=== PATIENT | female | born 1965 | race African-American/Black ===

== ENCOUNTER 2018-02-11 11:26 | Inpatient (IN) | payer OTHER, MEDICAID ==
[~2018-02-11] VITALS: Ht 152.4 cm; Wt 81.6 kg
[2018-02-11] MEDS ORDERED: SODIUM CHLORIDE 0.9% 1,000 ML IV ONE ×2 (11:35→14:46)
[2018-02-11] MEDS ORDERED: INSULIN (11:36)
[2018-02-11 13:22] LABS: BASOPHILS % 0.4 % (0.0-2.0); EOSINOPHILS % 1.8 % (0.0-5.0); HEMOGLOBIN. 12.7 g/dL (12.0-16.0); LYMPHOCYTES % 30.3 % (20.0-50.0); MEAN CORPUSCULAR HEMOGLOBIN 29.8 pg (28.0-32.0); MEAN CORPUSCULAR VOLUME 86.6 fL (81.0-99.0); MONOCYTES % 13.5 % (2.0-8.0); PLATELET 236 x1000/uL (130-400); RED BLOOD CELL COUNT 4.27 mill/uL (4.2-5.4)
[2018-02-11 13:24] LABS: CHLORIDE 106 mEq/L (98-107)
[2018-02-11 14:07] LABS: INR 1.1; PROTHROMBIN TIME 10.8 sec (9.1-11.1)
[2018-02-11] MEDS ORDERED: CLONIDINE 0.1MG TABLET PO PRN (16:00)
[2018-02-11] MEDS ORDERED: DOCUSATE SODIUM 100MG CAPSULE PO PRN (16:00)
[2018-02-11] MEDS ORDERED: ACETAMINOPHEN 650MG SUPP PR PRN (16:00)
[2018-02-11] MEDS ORDERED: MAGNESIUM/ALUMINUM HYDROXIDE/SIMETHICONE 30ML UDC PO PRN (16:00)
[2018-02-11] MEDS ORDERED: HYDROCODONE/ACETAMINOPHEN 10/325MG TABLET PO PRN (16:00)
[2018-02-11] MEDS ORDERED: DIPHENHYDRAMINE 50MG/ML VIAL IV PRN (16:00)
[2018-02-11] MEDS ORDERED: DEXTROSE 50% WATER 50ML SYRINGE IV PRN (16:00)
[2018-02-11] MEDS ORDERED: IPRATROPIUM/ALBUTEROL 0.5-3(2.5)MG/3ML NEB INH PRN (16:00)
[2018-02-11] MEDS ORDERED: ONDANSETRON HCL 4MG/2ML INJ IV PRN (16:00)
[2018-02-11] MEDS ORDERED: GUAIFENESIN 200MG/10ML SUGAR FREE UDC PO PRN (16:00)
[2018-02-11] MEDS ORDERED: NA PHOS,M-B/NA PHOS,DI-BA ENEMA 118ML PR PRN (16:00)
[2018-02-11] MEDS ORDERED: ACETAMINOPHEN 325MG TABLET PO PRN (16:00)
[2018-02-11] MEDS: HYDROMORPHONE HCL/PF 2MG/ML CPJ IV PRN ×2 (16:41→23:40)
[2018-02-11] MEDS ORDERED: GUAIFENESIN-DM 200MG-20MG/10ML UDC PO PRN (17:00)
[2018-02-11 17:30] LABS: CLARITY URINE CLOUDY (CLEAR); COLOR URINE DARK YELLOW (YELLOW); KETONES URINE TRACE (NEGATIVE); LEUKOCYTE ESTERASE URINE NEGATIVE (NEGATIVE); NITRITE URINE NEGATIVE (NEGATIVE); OCCULT BLOOD URINE NEGATIVE (NEGATIVE); PROTEIN URINE NEGATIVE (NEGATIVE); SPECIFIC GRAVITY URINE 1.025 (1.005-1.030)
[2018-02-11] MEDS ORDERED: IPRATROPIUM/ALBUTEROL 0.5-3(2.5)MG/3ML NEB HHN SCH (18:00)
[2018-02-11 23:14] LABS: CREATINE KINASE 33 IU/L (26-192)
[2018-02-11 23:15] LABS: CREATINE KINASE MB FRACTION < 1.0 ng/mL (0.5-3.6)
[2018-02-12] MEDS ORDERED: SODIUM CHLORIDE 0.9% 1,000 ML IV SCH (03:00)
[2018-02-12 03:36] VITALS: BP 95/54
[2018-02-12 04:00] VITALS: BP 106/53
[2018-02-12] MEDS: METRONIDAZOLE 500 MG PREMIX 100 ML IV SCH ×2 (04:33→12:19)
[2018-02-12] MEDS: LEVOFLOXACIN 500MG PREMIX 100 ML IV SCH (05:27)
[2018-02-12] MEDS: SODIUM CHLORIDE 0.9% INJ 3ML FLUSH IVF SCH ×3 (05:28→23:11)
[2018-02-12] MEDS: BLOOD SUGAR DIAGNOSTIC STRIP TEST SCH ×4 (06:19→20:04)
[2018-02-12] MEDS: INSULIN LISPRO 100 UNITS/ML SUBCUT SCH ×4 (06:20→20:04)
[2018-02-12] MEDS: HYDROMORPHONE HCL/PF 2MG/ML CPJ IV PRN ×2 (07:41→19:58)
[2018-02-12 08:00] VITALS: BP 114/84
[2018-02-12] MEDS ORDERED: HYDROMORPHONE HCL/PF 2MG/ML CPJ IV PRN (10:00)
[2018-02-12 12:00] VITALS: BP 112/74
[2018-02-12] MEDS: DEXT 5%/0.45% NACL 1000ML 1,000 ML IV SCH ×2 (12:19→23:12)
[2018-02-12 16:00] VITALS: BP 139/75
[2018-02-12 20:00] VITALS: BP 155/97
[2018-02-12] MEDS: LORAZEPAM 2MG/ML CPJ IV PRN (20:47)
[2018-02-12] MEDS ORDERED: ZOLPIDEM TARTRATE 5MG TABLET PO PRN (21:00)
[2018-02-12] MEDS: IPRATROPIUM/ALBUTEROL 0.5-3(2.5)MG/3ML NEB HHN SCH (21:36)
[2018-02-13] VITALS (9 sets, daily range): BP systolic 88–155; BP diastolic 39–91
[2018-02-13] MEDS: METRONIDAZOLE 500 MG PREMIX 100 ML IV SCH ×4 (00:39→21:36)
[2018-02-13] MEDS: HYDROMORPHONE HCL/PF 2MG/ML CPJ IV PRN ×7 (00:50→20:13)
[2018-02-13] MEDS: IPRATROPIUM/ALBUTEROL 0.5-3(2.5)MG/3ML NEB HHN SCH ×4 (01:54→20:29)
[2018-02-13] MEDS: ACETYLCYSTEINE 100MG/ML 10% VIAL 4ML INH SCH ×3 (01:54→16:50)
[2018-02-13] MEDS: LEVOFLOXACIN 500MG PREMIX 100 ML IV SCH (05:07)
[2018-02-13] MEDS: SODIUM CHLORIDE 0.9% INJ 3ML FLUSH IVF SCH ×3 (06:18→23:55)
[2018-02-13] MEDS: BLOOD SUGAR DIAGNOSTIC STRIP TEST SCH ×4 (06:18→21:34)
[2018-02-13] MEDS: INSULIN LISPRO 100 UNITS/ML SUBCUT SCH ×4 (06:24→21:00)
[2018-02-13 08:15] LABS: HEMATOCRIT. 33.5 % (36.0-48.0); HEMOGLOBIN. 11.3 g/dL (12.0-16.0); MEAN CORPUSCULAR VOLUME 86.1 fL (81.0-99.0); MEAN PLATELET VOLUME 6.8 fl (7.4-10.4); PLATELET 205 x1000/uL (130-400); RED BLOOD CELL COUNT 3.89 mill/uL (4.2-5.4); RED CELL DISTRIBUTION WIDTH 15.9 % (11.6-14.6)
[2018-02-13 09:02] LABS: CHLORIDE 106 mEq/L (98-107)
[2018-02-13 09:26] LABS: CREATINE KINASE 39 IU/L (26-192)
[2018-02-13 09:27] LABS: T4 FREE 0.83 ng/dL (0.76-1.46)
[2018-02-13 09:29] LABS: CREATINE KINASE MB FRACTION < 1.0 ng/mL (0.5-3.6)
[2018-02-13 10:48] LABS: PLATELET ESTIMATE NORMAL
[2018-02-13] MEDS: LORAZEPAM 2MG/ML CPJ IV PRN (11:04)
[2018-02-13] MEDS ORDERED: PHYTONADIONE 10MG/ML AMP SUBCUT NR (12:15)
[2018-02-13] MEDS: DEXT 5%/0.45% NACL 1000ML 1,000 ML IV SCH (13:13)
[2018-02-14] VITALS: BP 100/58
[2018-02-14] MEDS: IPRATROPIUM/ALBUTEROL 0.5-3(2.5)MG/3ML NEB HHN SCH ×4 (00:38→19:50)
[2018-02-14] MEDS: ACETYLCYSTEINE 100MG/ML 10% VIAL 4ML INH SCH (00:38)
[2018-02-14] MEDS: HYDROMORPHONE HCL/PF 2MG/ML CPJ IV PRN ×6 (01:17→20:16)
[2018-02-14] MEDS: DEXT 5%/0.45% NACL 1000ML 1,000 ML IV SCH ×2 (01:17→11:26)
[2018-02-14 04:00] VITALS: BP 97/55
[2018-02-14] MEDS: METRONIDAZOLE 500 MG PREMIX 100 ML IV SCH ×2 (05:05→13:16)
[2018-02-14] MEDS: SODIUM CHLORIDE 0.9% INJ 3ML FLUSH IVF SCH ×3 (05:07→22:48)
[2018-02-14] MEDS: LEVOFLOXACIN 500MG PREMIX 100 ML IV SCH (06:21)
[2018-02-14] MEDS: BLOOD SUGAR DIAGNOSTIC STRIP TEST SCH ×4 (06:25→20:28)
[2018-02-14] MEDS: INSULIN LISPRO 100 UNITS/ML SUBCUT SCH ×4 (07:28→20:28)
[2018-02-14 08:00] VITALS: BP 132/72
[2018-02-14 12:00] VITALS: BP 90/50
[2018-02-14] MEDS: LORAZEPAM 2MG/ML CPJ IV PRN (14:46)
[2018-02-14 16:00] VITALS: BP 132/83
[2018-02-14] MEDS: PIPERACILLIN/TAZ 3.375G PREMIX 50 ML IV SCH ×2 (17:02→23:45)
[2018-02-14 20:00] VITALS: BP 116/52
[2018-02-14] MEDS ORDERED: LABETALOL HCL 100MG TABLET PO SCH (21:00)
[2018-02-15] VITALS: BP 118/56
[2018-02-15] MEDS: HYDROMORPHONE HCL/PF 2MG/ML CPJ IV PRN ×6 (00:10→23:09)
[2018-02-15] MEDS: IPRATROPIUM/ALBUTEROL 0.5-3(2.5)MG/3ML NEB HHN SCH ×4 (00:55→20:35)
[2018-02-15] MEDS: ACETYLCYSTEINE 100MG/ML 10% VIAL 4ML INH SCH ×3 (00:55→15:32)
[2018-02-15] MEDS: DEXT 5%/0.45% NACL 1000ML 1,000 ML IV SCH (03:53)
[2018-02-15 04:00] VITALS: BP 101/43
[2018-02-15] MEDS: SODIUM CHLORIDE 0.9% INJ 3ML FLUSH IVF SCH ×3 (05:51→21:10)
[2018-02-15] MEDS: LEVOFLOXACIN 500MG PREMIX 100 ML IV SCH (05:51)
[2018-02-15] MEDS: PIPERACILLIN/TAZ 3.375G PREMIX 50 ML IV SCH ×4 (05:51→23:09)
[2018-02-15] MEDS: BLOOD SUGAR DIAGNOSTIC STRIP TEST SCH ×4 (06:02→20:49)
[2018-02-15] MEDS: INSULIN LISPRO 100 UNITS/ML SUBCUT SCH ×4 (06:02→20:49)
[2018-02-15 08:00] VITALS: BP 99/45
[2018-02-15 13:18] LABS: HEMATOCRIT 33.1 % (36.0-48.0); HEMOGLOBIN 11.2 g/dL (12.0-16.0); MEAN CORPUSCULAR HEMOGLOBIN 29.6 pg (28.0-32.0); MEAN CORPUSCULAR VOLUME 87.3 fL (81.0-99.0); PLATELET 215 x1000/uL (130-400); RED BLOOD CELL COUNT 3.79 mill/uL (4.2-5.4); RED CELL DISTRIBUTION WIDTH 15.7 % (11.6-14.6)
[2018-02-15 14:00] LABS: CHLORIDE 100 mEq/L (98-107)
[2018-02-15 14:35] VITALS: BP 141/94
[2018-02-15 16:00] VITALS: BP 98/51
[2018-02-15] MEDS: AMLODIPINE 5MG TABLET PO SCH (17:15)
[2018-02-15 20:00] VITALS: BP 153/88
[2018-02-16] VITALS (7 sets, daily range): BP systolic 91–131; BP diastolic 51–83
[2018-02-16] MEDS: IPRATROPIUM/ALBUTEROL 0.5-3(2.5)MG/3ML NEB HHN SCH ×4 (01:23→14:50)
[2018-02-16] MEDS: HYDROMORPHONE HCL/PF 2MG/ML CPJ IV PRN ×6 (02:06→20:11)
[2018-02-16] MEDS: SODIUM CHLORIDE 0.9% INJ 3ML FLUSH IVF SCH ×2 (05:16→14:00)
[2018-02-16] MEDS: PIPERACILLIN/TAZ 3.375G PREMIX 50 ML IV SCH ×3 (05:16→18:56)
[2018-02-16 08:05] LABS: HEMATOCRIT 32.6 % (36.0-48.0); HEMOGLOBIN 11.2 g/dL (12.0-16.0); MEAN CORPUSCULAR HEMOGLOBIN 29.7 pg (28.0-32.0); MEAN CORPUSCULAR VOLUME 86.3 fL (81.0-99.0); PLATELET 221 x1000/uL (130-400); RED BLOOD CELL COUNT 3.78 mill/uL (4.2-5.4); RED CELL DISTRIBUTION WIDTH 15.7 % (11.6-14.6)
[2018-02-16] MEDS: AMLODIPINE 5MG TABLET PO SCH (08:30)
[2018-02-16 08:56] LABS: CHLORIDE 102 mEq/L (98-107)
[2018-02-16] MEDS: BLOOD SUGAR DIAGNOSTIC STRIP TEST SCH ×3 (12:00→20:27)
[2018-02-16] MEDS: INSULIN LISPRO 100 UNITS/ML SUBCUT SCH ×3 (12:07→20:27)
[2018-02-16] MEDS: ACETYLCYSTEINE 100MG/ML 10% VIAL 4ML INH SCH (16:50)
[2018-02-17] VITALS: BP 126/88
[2018-02-17] MEDS: SODIUM CHLORIDE 0.9% INJ 3ML FLUSH IVF SCH ×4 (00:02→21:22)
[2018-02-17] MEDS: HYDROMORPHONE HCL/PF 2MG/ML CPJ IV PRN ×7 (00:03→21:22)
[2018-02-17] MEDS: PIPERACILLIN/TAZ 3.375G PREMIX 50 ML IV SCH ×4 (00:10→17:16)
[2018-02-17 04:00] VITALS: BP 133/80
[2018-02-17] MEDS: INSULIN LISPRO 100 UNITS/ML SUBCUT SCH ×4 (06:33→20:48)
[2018-02-17] MEDS: BLOOD SUGAR DIAGNOSTIC STRIP TEST SCH ×4 (06:33→21:00)
[2018-02-17 08:00] VITALS: BP 101/69
[2018-02-17] MEDS: AMLODIPINE 5MG TABLET PO SCH (08:28)
[2018-02-17] MEDS: ACETYLCYSTEINE 100MG/ML 10% VIAL 4ML INH SCH ×2 (08:50→16:37)
[2018-02-17] MEDS: IPRATROPIUM/ALBUTEROL 0.5-3(2.5)MG/3ML NEB HHN SCH ×3 (08:50→20:41)
[2018-02-17 11:20] VITALS: BP 123/78
[2018-02-17 16:07] VITALS: BP 110/69
[2018-02-17 20:00] VITALS: BP 113/74
[2018-02-18] VITALS: BP 126/68
[2018-02-18] MEDS: PIPERACILLIN/TAZ 3.375G PREMIX 50 ML IV SCH ×3 (00:38→12:46)
[2018-02-18] MEDS: HYDROMORPHONE HCL/PF 2MG/ML CPJ IV PRN ×5 (00:38→14:04)
[2018-02-18 04:00] VITALS: BP 115/74
[2018-02-18] MEDS: SODIUM CHLORIDE 0.9% INJ 3ML FLUSH IVF SCH ×2 (05:34→14:05)
[2018-02-18] MEDS: BLOOD SUGAR DIAGNOSTIC STRIP TEST SCH ×2 (07:10→12:10)
[2018-02-18] MEDS: INSULIN LISPRO 100 UNITS/ML SUBCUT SCH ×2 (07:40→12:40)
[2018-02-18] MEDS: AMLODIPINE 5MG TABLET PO SCH (09:23)
[2018-02-18 12:00] VITALS: BP 106/63
[2018-02-18 15:39] VITALS: BP 106/63
[2018-02-18 16:07] VITALS: BP 102/42
== END 2018-02-18 16:49 | disposition hospice, home (50) | DRG 919 ==
LOC: EDBD 11:26 → ER 13:17 → 8WST 14:08 → EDBEDREQ 14:17 → EDBEDREQTM 14:17 → ENRESERV 23:56
PROVIDERS: ADMIT Internal Medicine; ATTEND Internal Medicine
PROC: 0DP6XUZ Removal of Feeding Device from Stomach, External Approach (ICD-10-PCS; 2018-02-12)
PROC: 30233L1 Transfusion of Nonautologous Fresh Plasma into Peripheral Vein, Percutaneous Approach (ICD-10-PCS; principal; 2018-02-13)
PROC: 30233K1 Transfusion of Nonautologous Frozen Plasma into Peripheral Vein, Percutaneous Approach (ICD-10-PCS; 2018-02-13)
DX: T85.898A Other specified complication of other internal prosthetic devices, implants and grafts, initial encounter (principal); J18.9 Pneumonia, unspecified organism; C34.90 Malignant neoplasm of unspecified part of unspecified bronchus or lung; R04.2 Hemoptysis; J40 Bronchitis, not specified as acute or chronic; C73 Malignant neoplasm of thyroid gland; D64.9 Anemia, unspecified; E11.9 Type 2 diabetes mellitus without complications; R62.7 Adult failure to thrive; I10 Essential (primary) hypertension; F10.10 Alcohol abuse, uncomplicated; F17.200 Nicotine dependence, unspecified, uncomplicated; F32.9 Major depressive disorder, single episode, unspecified; G47.00 Insomnia, unspecified; Y73.8 Miscellaneous gastroenterology and urology devices associated with adverse incidents, not elsewhere classified; Y92.89 Other specified places as the place of occurrence of the external cause; Z93.0 Tracheostomy status; Z92.3 Personal history of irradiation
CPT/HCPCS: 36415; 71045; 80048; 82550; 82553; 82962; 83036; 83605; 83880; 84145; 84439; 84443; 84484; 85027; 86850; 86900; 86927; 87070; 92610; 93005; 94640; 96374; 97163; 99291; J1170; J1200; J1815; J1956; J2060; J2405; J2543; J3430; J3490; J7030; J7040; J7050; J7608; J7620; P9017

== ENCOUNTER 2018-05-04 10:07 | Emergency (ER) | payer OTHER, MEDICAID ==
[~2018-05-04] VITALS: Ht 167.6 cm; Wt 79.0 kg
[~2018-05-04 10:07] MED LIST: INSULIN
[2018-05-04] MEDS ORDERED: SODIUM CHLORIDE 0.9% 1,000 ML IV ONE (10:39)
[2018-05-04 11:01] LABS: BASOPHILS % 0.8 % (0.0-2.0); EOSINOPHILS % 1.7 % (0.0-5.0); HEMATOCRIT. 39.3 % (36.0-48.0); HEMOGLOBIN. 13.1 g/dL (12.0-16.0); LYMPHOCYTES % 26.4 % (20.0-50.0); MEAN CORPUSCULAR HEMOGLOBIN 28.8 pg (28.0-32.0); MEAN CORPUSCULAR VOLUME 86.1 fL (81.0-99.0); MEAN PLATELET VOLUME 6.9 fl (7.4-10.4); MONOCYTES % 5.9 % (2.0-8.0); NEUTROPHILS % 65.2 % (40.0-76.0); PLATELET 231 x1000/uL (130-400); RED BLOOD CELL COUNT 4.56 mill/uL (4.2-5.4)
[2018-05-04 11:10] LABS: INR 1.1; PARTIAL THROMBOPLASTIN TIME 34.5 sec (23.4-31.0); PROTHROMBIN TIME 11.5 sec (9.1-11.1)
[2018-05-04 11:15] LABS: CHLORIDE 108 mEq/L (98-107)
[2018-05-04] MEDS ORDERED: MORPHINE SULFATE 4 MG/ML CPJ (NOT FOR IM USE) IV STA (14:03)
[2018-05-04] MEDS ORDERED: ONDANSETRON HCL 4MG/2ML INJ IV STA (14:03)
[2018-05-04 19:54] VITALS: BP 121/67
== END 2018-05-04 21:42 | disposition short-term general hospital (02) ==
LOC: ER 10:07 → CANBEDREQ 18:39 → ER 21:42
DX: J95.00 Unspecified tracheostomy complication (principal); E11.9 Type 2 diabetes mellitus without complications
CPT/HCPCS: 36415; 71045; 80053; 84484; 85025; 85610; 85730; 86850; 86900; 86901; 93005; 96374; 96375; 99285; J2270; J2405; J7030

== ENCOUNTER 2018-11-27 07:31 | Emergency (ER) | payer OTHER, MEDICAID ==
[~2018-11-27] VITALS: Ht 167.6 cm; Wt 104.0 kg
[2018-11-27] MEDS ORDERED: SODIUM CHLORIDE 0.9% 1,000 ML IV ONE (07:49)
[2018-11-27] MEDS ORDERED: ONDANSETRON HCL 4MG/2ML INJ IV STA (07:49)
[2018-11-27] MEDS ORDERED: MORPHINE SULFATE 4 MG/ML CPJ (NOT FOR IM USE) IV STA (07:49)
[2018-11-27 08:49] LABS: CHLORIDE 107 mEq/L (98-107)
[2018-11-27 08:52] LABS: INR 1.1; PROTHROMBIN TIME 11.3 sec (9.6-11.0)
[2018-11-27 08:53] LABS: BASOPHILS % 0.3 % (0.0-2.0); EOSINOPHILS % 0.8 % (0.0-5.0); HEMATOCRIT. 35.4 % (36.0-48.0); HEMOGLOBIN. 11.7 g/dL (12.0-16.0); LYMPHOCYTES % 17.2 % (20.0-50.0); MEAN CORPUSCULAR HEMOGLOBIN 28.1 pg (28.0-32.0); MEAN CORPUSCULAR VOLUME 84.7 fL (81.0-99.0); MEAN PLATELET VOLUME 7.4 fl (7.4-10.4); MONOCYTES % 5.4 % (2.0-8.0); NEUTROPHILS % 76.3 % (40.0-76.0); PLATELET 211 x1000/uL (130-400); RED BLOOD CELL COUNT 4.18 mill/uL (4.2-5.4); RED CELL DISTRIBUTION WIDTH 15.1 % (11.6-14.6)
[2018-11-27 09:01] LABS: CLARITY URINE CLEAR (CLEAR); COLOR URINE YELLOW (YELLOW); KETONES URINE NEGATIVE (NEGATIVE); LEUKOCYTE ESTERASE URINE TRACE (NEGATIVE); NITRITE URINE POSITIVE (NEGATIVE); OCCULT BLOOD URINE NEGATIVE (NEGATIVE); PROTEIN URINE NEGATIVE (NEGATIVE); SPECIFIC GRAVITY URINE 1.016 (1.005-1.030)
[2018-11-27 09:10] LABS: HCG SCREEN NEGATIVE
[2018-11-27] MEDS ORDERED: IOHEXOL-300 100 ML BOTTLE ONE (09:41)
[2018-11-27] MEDS ORDERED: MORPHINE SULFATE 4 MG/ML CPJ (NOT FOR IM USE) IV ONE (13:15)
[2018-11-27 14:24] VITALS: BP 131/58
== END 2018-11-27 14:32 | disposition short-term general hospital (02) ==
LOC: ER 07:36 → CANBEDREQ 11:28 → ER 14:32
DX: K56.690 Other partial intestinal obstruction (principal); E11.9 Type 2 diabetes mellitus without complications; N39.0 Urinary tract infection, site not specified; J44.9 Chronic obstructive pulmonary disease, unspecified; Z85.118 Personal history of other malignant neoplasm of bronchus and lung; Z85.818 Personal history of malignant neoplasm of other sites of lip, oral cavity, and pharynx; Z93.0 Tracheostomy status; Z79.4 Long term (current) use of insulin; Z98.890 Other specified postprocedural states
CPT/HCPCS: 36415; 71045; 74177; 80053; 81003; 83690; 83880; 84484; 84703; 85025; 85610; 93005; 96374; 96375; 96376; 99285; J2270; J2405; J7030; Q9967

== ENCOUNTER 2019-01-30 19:48 | Inpatient (IN) | payer MEDICARE, MEDICAID ==
[~2019-01-30] VITALS: Ht 165.1 cm; Wt 78.9 kg
[2019-01-30] MEDS ORDERED: ONDANSETRON HCL 4MG/2ML INJ IV STA (20:19)
[2019-01-30] MEDS ORDERED: SODIUM CHLORIDE 0.9% 1,000 ML IV ONE (20:19)
[2019-01-30] MEDS ORDERED: MORPHINE SULFATE 4 MG/ML CPJ (NOT FOR IM USE) IV STA (20:19)
[2019-01-30 22:16] LABS: BASOPHILS % 0.2 % (0.0-2.0); EOSINOPHILS % 1.8 % (0.0-5.0); HEMATOCRIT. 36.3 % (36.0-48.0); HEMOGLOBIN. 12.3 g/dL (12.0-16.0); LYMPHOCYTES % 19.8 % (20.0-50.0); MEAN CORPUSCULAR HEMOGLOBIN 28.7 pg (28.0-32.0); MEAN CORPUSCULAR VOLUME 84.7 fL (81.0-99.0); MEAN PLATELET VOLUME 7.1 fl (7.4-10.4); MONOCYTES % 6.5 % (2.0-8.0); NEUTROPHILS % 71.7 % (40.0-76.0); PLATELET 291 x1000/uL (130-400); RED BLOOD CELL COUNT 4.28 mill/uL (4.2-5.4); RED CELL DISTRIBUTION WIDTH 16.9 % (11.6-14.6)
[2019-01-30 22:22] LABS: CHLORIDE 108 mEq/L (98-107)
[2019-01-30 22:25] LABS: CLARITY URINE CLOUDY (CLEAR); COLOR URINE YELLOW (YELLOW); KETONES URINE NEGATIVE (NEGATIVE); LEUKOCYTE ESTERASE URINE 1+ (NEGATIVE); NITRITE URINE POSITIVE (NEGATIVE); OCCULT BLOOD URINE NEGATIVE (NEGATIVE); PH URINE 5.5 (4.5-8.0); PROTEIN URINE NEGATIVE (NEGATIVE); SPECIFIC GRAVITY URINE 1.016 (1.005-1.030)
[2019-01-30] MEDS ORDERED: SODIUM CHLORIDE 0.9% 1000ML BAG (SEPSIS BOLUS) IV ONE (23:00)
[2019-01-30] MEDS ORDERED: VANCOMYCIN 1 G PREMIX 200 ML IV ONE (23:00)
[2019-01-30] MEDS ORDERED: PIPERACILLIN/TAZ 3.375G PREMIX 50 ML IV ONE (23:00)
[2019-01-30] MEDS ORDERED: HYDROMORPHONE HCL/PF 2MG/ML CPJ IV ONE (23:45)
[2019-01-31] VITALS (9 sets, daily range): BP systolic 93–105; BP diastolic 43–62
[2019-01-31] MEDS ORDERED: HYDROMORPHONE HCL/PF 2MG/ML CPJ IV ONE (04:45)
[2019-01-31] MEDS ORDERED: MORPHINE SULFATE 2 MG/ML CPJ (NOT FOR IM USE) IV PRN (10:15)
[2019-01-31] MEDS ORDERED: PNEUMOCOCCAL 23-VAL P-SAC VAC 0.5 ML IM ONE (10:15)
[2019-01-31] MEDS ORDERED: INFLUENZA VIRUS VACCINE(AFLURIA) 0.5ML SYR IM ONE (10:15)
[2019-01-31] MEDS ORDERED: ALBU2.5V13 NEB (12:22)
[2019-01-31] MEDS ORDERED: HYDR-3280 MT (12:34)
[2019-01-31] MEDS ORDERED: CEPH-569 MT (12:34)
[2019-01-31] MEDS ORDERED: MORP10DI10 PO (12:34)
[2019-01-31] MEDS ORDERED: FURO-152 MT (12:34)
[2019-01-31] MEDS ORDERED: TEMA15CA PO (12:34)
[2019-01-31] MEDS ORDERED: SENN-170 PO (12:34)
[2019-01-31] MEDS ORDERED: ONDA4TAB5 MT (12:34)
[2019-01-31] MEDS ORDERED: MORP30TA54 PO (12:34)
[2019-01-31] MEDS ORDERED: ONDANSETRON 4MG ODT PO PRN (14:45)
[2019-01-31] MEDS: MIDODRINE HCL 5MG TABLET PO SCH ×2 (15:13→16:47)
[2019-01-31] MEDS: HYDROMORPHONE HCL/PF 2MG/ML CPJ IV PRN ×3 (15:13→22:25)
[2019-01-31] MEDS: SENNOSIDES 8.6MG TABLET PO SCH (16:46)
[2019-01-31] MEDS ORDERED: BISACODYL 10MG SUPP PR PRN (17:00)
[2019-01-31] MEDS ORDERED: BISACODYL 10MG SUPP PR NR (17:00)
[2019-01-31] MEDS: CEFTRIAXONE 1 G PREMIX 50 ML IV SCH (17:59)
[2019-01-31] MEDS ORDERED: TEMAZEPAM 15MG CAPSULE PO PRN (21:00)
[2019-01-31] MEDS: ALBUTEROL (0.083%) 2.5MG/3ML NEB HHN SCH (21:15)
[2019-02-01] VITALS (14 sets, daily range): BP systolic 87–121; BP diastolic 35–61
[2019-02-01] MEDS: ALBUTEROL (0.083%) 2.5MG/3ML NEB HHN SCH ×3 (02:04→20:24)
[2019-02-01] MEDS: HYDROMORPHONE HCL/PF 2MG/ML CPJ IV PRN ×6 (02:05→23:10)
[2019-02-01] MEDS: SENNOSIDES 8.6MG TABLET PO SCH ×2 (08:29→16:31)
[2019-02-01] MEDS: FUROSEMIDE 20MG TABLET PO SCH (08:30)
[2019-02-01] MEDS: MIDODRINE HCL 5MG TABLET PO SCH ×3 (08:30→16:32)
[2019-02-01] MEDS ORDERED: BISACODYL 10MG SUPP PR NR (10:45)
[2019-02-01 14:59] LABS: BASOPHILS % 0.2 % (0.0-2.0); EOSINOPHILS % 2.5 % (0.0-5.0); HEMATOCRIT. 36.4 % (36.0-48.0); HEMOGLOBIN. 12.3 g/dL (12.0-16.0); LYMPHOCYTES % 32.5 % (20.0-50.0); MEAN CORPUSCULAR HEMOGLOBIN 28.4 pg (28.0-32.0); MEAN CORPUSCULAR VOLUME 83.9 fL (81.0-99.0); MEAN PLATELET VOLUME 7.3 fl (7.4-10.4); MONOCYTES % 6.4 % (2.0-8.0); NEUTROPHILS % 58.4 % (40.0-76.0); PLATELET 271 x1000/uL (130-400); RED BLOOD CELL COUNT 4.34 mill/uL (4.2-5.4); RED CELL DISTRIBUTION WIDTH 16.7 % (11.6-14.6)
[2019-02-01 15:11] LABS: CHLORIDE 106 mEq/L (98-107)
[2019-02-01] MEDS: ENOXAPARIN 40MG/0.4ML SYR SUBCUT SCH (16:24)
[2019-02-01] MEDS ORDERED: ACETAMINOPHEN 650MG SUPP PR PRN (16:45)
[2019-02-01] MEDS ORDERED: ACETAMINOPHEN 325MG TABLET PO PRN (16:45)
[2019-02-01] MEDS ORDERED: LORAZEPAM 2MG/ML CPJ IV PRN (16:45)
[2019-02-01] MEDS ORDERED: HYDRALAZINE 20MG/ML VIAL IV PRN (16:45)
[2019-02-01] MEDS ORDERED: DIPHENHYDRAMINE 50MG/ML VIAL IV PRN (16:45)
[2019-02-01] MEDS ORDERED: LACTULOSE 20G/30ML UDC PO PRN (16:45)
[2019-02-01] MEDS ORDERED: POTASSIUM CHLORIDE 20MEQ TABLET SR PO SCH (17:00)
[2019-02-01] MEDS: CEFTRIAXONE 1 G PREMIX 50 ML IV SCH (17:42)
[2019-02-01] MEDS: FAMOTIDINE 20MG TABLET PO SCH (21:08)
[2019-02-02] VITALS (10 sets, daily range): BP systolic 93–110; BP diastolic 42–84
[2019-02-02] MEDS: HYDROMORPHONE HCL/PF 2MG/ML CPJ IV PRN ×6 (02:29→22:13)
[2019-02-02 06:58] LABS: CHLORIDE 109 mEq/L (98-107)
[2019-02-02 07:12] LABS: HEMATOCRIT 37.1 % (36.0-48.0); HEMOGLOBIN 12.7 g/dL (12.0-16.0); MEAN CORPUSCULAR HEMOGLOBIN 28.5 pg (28.0-32.0); MEAN CORPUSCULAR VOLUME 83.1 fL (81.0-99.0); PLATELET 270 x1000/uL (130-400); RED BLOOD CELL COUNT 4.46 mill/uL (4.2-5.4); RED CELL DISTRIBUTION WIDTH 16.6 % (11.6-14.6)
[2019-02-02] MEDS: SENNOSIDES 8.6MG TABLET PO SCH ×2 (09:00→17:00)
[2019-02-02] MEDS: FUROSEMIDE 20MG TABLET PO SCH (09:27)
[2019-02-02] MEDS: MIDODRINE HCL 5MG TABLET PO SCH ×3 (09:28→17:44)
[2019-02-02] MEDS: ALBUTEROL (0.083%) 2.5MG/3ML NEB HHN SCH ×3 (09:34→20:51)
[2019-02-02] MEDS: ENOXAPARIN 40MG/0.4ML SYR SUBCUT SCH (15:02)
[2019-02-02] MEDS: CEFTRIAXONE 1 G PREMIX 50 ML IV SCH (17:43)
[2019-02-02] MEDS ORDERED: LACTULOSE 20G/30ML UDC PO NR (18:24)
[2019-02-02] MEDS: DOCUSATE SODIUM 100MG CAPSULE PO SCH (18:38)
[2019-02-02] MEDS: FAMOTIDINE 20MG TABLET PO SCH (22:11)
[2019-02-03] VITALS (7 sets, daily range): BP systolic 99–156; BP diastolic 56–111
[2019-02-03] MEDS: HYDROMORPHONE HCL/PF 2MG/ML CPJ IV PRN ×6 (02:14→22:29)
[2019-02-03] MEDS: ALBUTEROL (0.083%) 2.5MG/3ML NEB HHN SCH ×4 (02:35→19:56)
[2019-02-03] MEDS: FUROSEMIDE 20MG TABLET PO SCH (09:00)
[2019-02-03] MEDS: MIDODRINE HCL 5MG TABLET PO SCH ×3 (09:10→17:00)
[2019-02-03] MEDS: DOCUSATE SODIUM 100MG CAPSULE PO SCH ×2 (09:10→17:10)
[2019-02-03] MEDS: SENNOSIDES 8.6MG TABLET PO SCH ×2 (09:10→17:10)
[2019-02-03] MEDS ORDERED: NA PHOS,M-B/NA PHOS,DI-BA ENEMA 118ML PR NR (11:06)
[2019-02-03] MEDS ORDERED: LACTULOSE 20G/30ML UDC PO NR (13:45)
[2019-02-03] MEDS: ENOXAPARIN 40MG/0.4ML SYR SUBCUT SCH (15:10)
[2019-02-03] MEDS: CEFTRIAXONE 1 G PREMIX 50 ML IV SCH (17:11)
[2019-02-03 17:51] LABS: HEMOGLOBIN 13.9 g/dL (12.0-16.0); MEAN CORPUSCULAR HEMOGLOBIN 28.4 pg (28.0-32.0); MEAN CORPUSCULAR VOLUME 83.9 fL (81.0-99.0); PLATELET 274 x1000/uL (130-400); RED BLOOD CELL COUNT 4.88 mill/uL (4.2-5.4); RED CELL DISTRIBUTION WIDTH 16.8 % (11.6-14.6)
[2019-02-03 18:04] LABS: CHLORIDE 105 mEq/L (98-107)
[2019-02-03] MEDS: FAMOTIDINE 20MG TABLET PO SCH (22:01)
[2019-02-04] VITALS (8 sets, daily range): BP systolic 105–155; BP diastolic 47–74
[2019-02-04] MEDS: ALBUTEROL (0.083%) 2.5MG/3ML NEB HHN SCH ×4 (01:28→22:17)
[2019-02-04] MEDS: HYDROMORPHONE HCL/PF 2MG/ML CPJ IV PRN ×6 (02:31→22:38)
[2019-02-04] MEDS: DOCUSATE SODIUM 100MG CAPSULE PO SCH ×2 (09:28→16:35)
[2019-02-04] MEDS: SENNOSIDES 8.6MG TABLET PO SCH ×2 (09:29→16:35)
[2019-02-04] MEDS: FUROSEMIDE 20MG TABLET PO SCH (09:29)
[2019-02-04] MEDS: MIDODRINE HCL 5MG TABLET PO SCH ×3 (09:30→16:37)
[2019-02-04] MEDS: ENOXAPARIN 40MG/0.4ML SYR SUBCUT SCH (16:35)
[2019-02-04] MEDS: CEFTRIAXONE 1 G PREMIX 50 ML IV SCH ×2 (18:00→21:16)
[2019-02-04] MEDS: FAMOTIDINE 20MG TABLET PO SCH (20:50)
[2019-02-05] VITALS (7 sets, daily range): BP systolic 95–147; BP diastolic 47–81
[2019-02-05] MEDS: HYDROMORPHONE HCL/PF 2MG/ML CPJ IV PRN ×6 (02:38→22:36)
[2019-02-05] MEDS: ALBUTEROL (0.083%) 2.5MG/3ML NEB HHN SCH ×4 (03:20→20:31)
[2019-02-05] MEDS: SENNOSIDES 8.6MG TABLET PO SCH ×3 (09:00→17:51)
[2019-02-05] MEDS: FUROSEMIDE 20MG TABLET PO SCH (09:00)
[2019-02-05] MEDS: MIDODRINE HCL 5MG TABLET PO SCH ×3 (09:49→17:51)
[2019-02-05] MEDS: DOCUSATE SODIUM 100MG CAPSULE PO SCH ×2 (09:49→17:51)
[2019-02-05] MEDS: ENOXAPARIN 40MG/0.4ML SYR SUBCUT SCH (14:09)
[2019-02-05] MEDS: CEFTRIAXONE 1 G PREMIX 50 ML IV SCH (20:08)
[2019-02-05] MEDS: FAMOTIDINE 20MG TABLET PO SCH (20:15)
[2019-02-06] VITALS: BP 117/66
[2019-02-06] MEDS: ALBUTEROL (0.083%) 2.5MG/3ML NEB HHN SCH ×4 (00:55→20:58)
[2019-02-06] MEDS: HYDROMORPHONE HCL/PF 2MG/ML CPJ IV PRN ×6 (02:28→23:09)
[2019-02-06 06:56] VITALS: BP 142/59
[2019-02-06] MEDS: SENNOSIDES 8.6MG TABLET PO SCH ×2 (08:33→19:00)
[2019-02-06] MEDS: FUROSEMIDE 20MG TABLET PO SCH (08:33)
[2019-02-06] MEDS: MIDODRINE HCL 5MG TABLET PO SCH ×2 (08:34→12:56)
[2019-02-06] MEDS: DOCUSATE SODIUM 100MG CAPSULE PO SCH ×2 (08:34→19:00)
[2019-02-06 11:48] VITALS: BP 124/70
[2019-02-06] MEDS: ENOXAPARIN 40MG/0.4ML SYR SUBCUT SCH (12:56)
[2019-02-06] MEDS ORDERED: ENOXAPARIN 40MG/0.4ML SYR SUBCUT SCH (13:00)
[2019-02-06 16:00] VITALS: BP 104/53
[2019-02-06 17:00] VITALS: BP 147/74
[2019-02-06 19:00] VITALS: BP 147/74
[2019-02-06] MEDS: CEFTRIAXONE 1 G PREMIX 50 ML IV SCH (20:28)
[2019-02-06] MEDS: FAMOTIDINE 20MG TABLET PO SCH (20:28)
[2019-02-07] VITALS (8 sets, daily range): BP systolic 90–128; BP diastolic 47–73
[2019-02-07] MEDS: ALBUTEROL (0.083%) 2.5MG/3ML NEB HHN SCH ×5 (01:00→21:07)
[2019-02-07] MEDS: HYDROMORPHONE HCL/PF 2MG/ML CPJ IV PRN ×6 (02:58→23:04)
[2019-02-07] MEDS: FUROSEMIDE 20MG TABLET PO SCH (08:31)
[2019-02-07] MEDS: DOCUSATE SODIUM 100MG CAPSULE PO SCH ×2 (08:31→17:59)
[2019-02-07] MEDS: SENNOSIDES 8.6MG TABLET PO SCH ×2 (08:31→17:59)
[2019-02-07 09:53] LABS: HEMATOCRIT 41.8 % (36.0-48.0); HEMOGLOBIN 13.7 g/dL (12.0-16.0); MEAN CORPUSCULAR VOLUME 85.3 fL (81.0-99.0); PLATELET 232 x1000/uL (130-400); RED CELL DISTRIBUTION WIDTH 16.9 % (11.6-14.6)
[2019-02-07 10:03] LABS: CHLORIDE 103 mEq/L (98-107)
[2019-02-07] MEDS: ENOXAPARIN 40MG/0.4ML SYR SUBCUT SCH (15:02)
[2019-02-07] MEDS: CEFTRIAXONE 1 G PREMIX 50 ML IV SCH (20:03)
[2019-02-07] MEDS: FAMOTIDINE 20MG TABLET PO SCH (20:03)
[2019-02-08] MEDS: ALBUTEROL (0.083%) 2.5MG/3ML NEB HHN SCH ×4 (01:10→20:45)
[2019-02-08 03:00] VITALS: BP 115/65
[2019-02-08] MEDS: HYDROMORPHONE HCL/PF 2MG/ML CPJ IV PRN ×6 (03:02→23:08)
[2019-02-08] MEDS: SENNOSIDES 8.6MG TABLET PO SCH ×2 (09:12→16:40)
[2019-02-08] MEDS: FUROSEMIDE 20MG TABLET PO SCH (09:12)
[2019-02-08] MEDS: DOCUSATE SODIUM 100MG CAPSULE PO SCH ×2 (09:13→16:40)
[2019-02-08 12:00] VITALS: BP 96/46
[2019-02-08] MEDS ORDERED: DOCU-138 MT (15:59)
[2019-02-08] MEDS ORDERED: IPRA3AMP9 NEB (15:59)
[2019-02-08] MEDS ORDERED: FAMO-135 PO (15:59)
[2019-02-08 16:00] VITALS: BP 112/72
[2019-02-08] MEDS: ENOXAPARIN 40MG/0.4ML SYR SUBCUT SCH (16:40)
[2019-02-08 20:00] VITALS: BP 114/66
[2019-02-08] MEDS: FAMOTIDINE 20MG TABLET PO SCH (21:56)
[2019-02-09] VITALS (7 sets, daily range): BP systolic 104–129; BP diastolic 60–75
[2019-02-09] MEDS: ALBUTEROL (0.083%) 2.5MG/3ML NEB HHN SCH ×5 (01:40→22:18)
[2019-02-09] MEDS: HYDROMORPHONE HCL/PF 2MG/ML CPJ IV PRN ×5 (03:37→23:40)
[2019-02-09] MEDS: FUROSEMIDE 20MG TABLET PO SCH (09:10)
[2019-02-09] MEDS: SENNOSIDES 8.6MG TABLET PO SCH ×2 (09:10→18:13)
[2019-02-09] MEDS: DOCUSATE SODIUM 100MG CAPSULE PO SCH ×2 (09:10→18:13)
[2019-02-09] MEDS: ENOXAPARIN 40MG/0.4ML SYR SUBCUT SCH (14:21)
[2019-02-09] MEDS: FAMOTIDINE 20MG TABLET PO SCH (21:22)
[2019-02-10] MEDS: HYDROMORPHONE HCL/PF 2MG/ML CPJ IV PRN ×3 (03:40→11:52)
[2019-02-10 04:00] VITALS: BP 120/51
[2019-02-10 08:00] VITALS: BP 108/65
[2019-02-10] MEDS: ALBUTEROL (0.083%) 2.5MG/3ML NEB HHN SCH (08:21)
[2019-02-10] MEDS: DOCUSATE SODIUM 100MG CAPSULE PO SCH (08:45)
[2019-02-10] MEDS: SENNOSIDES 8.6MG TABLET PO SCH (08:45)
[2019-02-10] MEDS: FUROSEMIDE 20MG TABLET PO SCH (08:45)
[2019-02-10 12:25] VITALS: BP 138/81
[2019-02-10 12:58] VITALS: BP 138/81
[2019-02-10] MEDS: ENOXAPARIN 40MG/0.4ML SYR SUBCUT SCH (14:00)
== END 2019-02-10 14:15 | disposition hospice, home (50) | DRG 193 ==
LOC: ER 20:06 → 5EST 23:41 → ENRESERV 01-31 07:04 → 8WST 02-02 12:11
PROVIDERS: ADMIT Internal Medicine; ATTEND Internal Medicine
DX: J18.9 Pneumonia, unspecified organism (principal); J96.20 Acute and chronic respiratory failure, unspecified whether with hypoxia or hypercapnia; N39.0 Urinary tract infection, site not specified; E44.1 Mild protein-calorie malnutrition; J44.0 Chronic obstructive pulmonary disease with (acute) lower respiratory infection; K56.609 Unspecified intestinal obstruction, unspecified as to partial versus complete obstruction; K59.00 Constipation, unspecified; E88.09 Other disorders of plasma-protein metabolism, not elsewhere classified; B96.1 Klebsiella pneumoniae [K. pneumoniae] as the cause of diseases classified elsewhere; E87.8 Other disorders of electrolyte and fluid balance, not elsewhere classified; E11.9 Type 2 diabetes mellitus without complications; E87.6 Hypokalemia; D72.819 Decreased white blood cell count, unspecified; C73 Malignant neoplasm of thyroid gland; D64.9 Anemia, unspecified; Z85.01 Personal history of malignant neoplasm of esophagus; Z85.118 Personal history of other malignant neoplasm of bronchus and lung; Z93.0 Tracheostomy status; Z85.850 Personal history of malignant neoplasm of thyroid; Z68.29 Body mass index [BMI] 29.0-29.9, adult
CPT/HCPCS: 36415; 71045; 74018; 74176; 80048; 80053; 81003; 83605; 83880; 84484; 85025; 85027; 87070; 87077; 87186; 87804; 90686; 90732; 93005; 93970; 94640; 97110; 97163; 97535; 99291; J0696; J1170; J1650; J2270; J2405; J2543; J3370; J7030

== ENCOUNTER 2019-02-12 18:39 | Inpatient (IN) | payer OTHER, MEDICAID ==
[~2019-02-12] VITALS: Ht 165.1 cm; Wt 75.3 kg
[~2019-02-12 18:39] MED LIST changes: +ALBU2.5V13 NEB; +CEPH-569 MT; +DOCU-138 MT; +FAMO-135 PO; +FURO-152 MT; +HYDR-3280 MT; +IPRA3AMP9 NEB; +MORP10DI10 PO; +MORP30TA54 PO; +ONDA4TAB5 MT; +SENN-170 PO; +TEMA15CA PO
[2019-02-12] MEDS ORDERED: SODIUM CHLORIDE 0.9% 1,000 ML IV ONE (19:15)
[2019-02-12 19:59] LABS: BASOPHILS % 0.4 % (0.0-2.0); EOSINOPHILS % 0.4 % (0.0-5.0); HEMATOCRIT. 42.9 % (36.0-48.0); LYMPHOCYTES % 21.6 % (20.0-50.0); MEAN CORPUSCULAR VOLUME 85.8 fL (81.0-99.0); MEAN PLATELET VOLUME 7.8 fl (7.4-10.4); MONOCYTES % 5.7 % (2.0-8.0); NEUTROPHILS % 71.9 % (40.0-76.0); PLATELET 176 x1000/uL (130-400); RED CELL DISTRIBUTION WIDTH 16.7 % (11.6-14.6)
[2019-02-12 20:09] LABS: CHLORIDE 103 mEq/L (98-107)
[2019-02-12 21:27] LABS: CLARITY URINE CLOUDY (CLEAR); COLOR URINE YELLOW (YELLOW); KETONES URINE NEGATIVE (NEGATIVE); LEUKOCYTE ESTERASE URINE NEGATIVE (NEGATIVE); NITRITE URINE NEGATIVE (NEGATIVE); OCCULT BLOOD URINE NEGATIVE (NEGATIVE); PROTEIN URINE NEGATIVE (NEGATIVE); SPECIFIC GRAVITY URINE 1.021 (1.005-1.030)
[2019-02-12] MEDS ORDERED: MORPHINE SULFATE 4 MG/ML CPJ (NOT FOR IM USE) IV ONE (23:30)
[2019-02-13] MEDS: HYDROMORPHONE HCL/PF 2MG/ML CPJ IV PRN ×3 (16:21→23:50)
[2019-02-13] MEDS ORDERED: ONDANSETRON HCL 4MG/2ML INJ IV PRN ×2 (21:45→23:15)
[2019-02-13] MEDS ORDERED: IPRATROPIUM/ALBUTEROL 0.5-3(2.5)MG/3ML NEB HHN SCH (22:00)
[2019-02-13] MEDS ORDERED: ENOXAPARIN 40MG/0.4ML SYR SUBCUT SCH (22:00)
[2019-02-13] MEDS ORDERED: BISACODYL 10MG SUPP PR PRN (23:15)
[2019-02-13] MEDS ORDERED: MAGNESIUM/ALUMINUM HYDROXIDE/SIMETHICONE 30ML UDC PO PRN (23:15)
[2019-02-13] MEDS ORDERED: IPRATROPIUM/ALBUTEROL 0.5-3(2.5)MG/3ML NEB NEB PRN (23:15)
[2019-02-13] MEDS ORDERED: GUAIFENESIN 200MG/10ML SUGAR FREE UDC PO PRN (23:15)
[2019-02-13] MEDS ORDERED: ACETAMINOPHEN 325MG TABLET PO PRN (23:15)
[2019-02-13] MEDS ORDERED: CLONIDINE 0.1MG TABLET PO PRN (23:15)
[2019-02-13] MEDS ORDERED: DIPHENHYDRAMINE 50MG/ML VIAL IV PRN (23:15)
[2019-02-13] MEDS ORDERED: HYDROCODONE/ACETAMINOPHEN 10/325MG TABLET PO PRN (23:15)
[2019-02-14] MEDS: HYDROMORPHONE HCL/PF 2MG/ML CPJ IV PRN ×6 (06:37→21:28)
[2019-02-14] MEDS ORDERED: DOCUSATE SODIUM 250MG CAPSULE PO SCH ×2 (09:00→17:00)
[2019-02-14] MEDS: DEXT 5%/0.45% NACL 1000ML 1,000 ML IV SCH ×2 (09:08→17:20)
[2019-02-14 11:49] VITALS: BP 110/52
[2019-02-14 12:00] VITALS: BP 101/50
[2019-02-14] MEDS ORDERED: MORPHINE SULFATE 30MG TABLET SR PO SCH (12:00)
[2019-02-14 14:00] VITALS: BP_SYST 117; BP_SYST 96; BP_SYST 97; BP_DIAS 56; BP_DIAS 64; BP_DIAS 65
[2019-02-14] MEDS: IPRATROPIUM/ALBUTEROL 0.5-3(2.5)MG/3ML NEB HHN SCH (14:53)
[2019-02-14 16:00] VITALS: BP 108/57
[2019-02-14] MEDS: DOCUSATE SODIUM SUGAR FREE 100MG/10ML UDC PO SCH (17:45)
[2019-02-14 20:00] VITALS: BP 94/52
[2019-02-14] MEDS ORDERED: SENNOSIDES 8.6MG TABLET PO SCH (21:00)
[2019-02-15] VITALS: BP 104/52
[2019-02-15] MEDS: IPRATROPIUM/ALBUTEROL 0.5-3(2.5)MG/3ML NEB HHN SCH ×2 (00:42→08:45)
[2019-02-15] MEDS: HYDROMORPHONE HCL/PF 2MG/ML CPJ IV PRN ×3 (01:22→09:33)
[2019-02-15 02:00] VITALS: BP 113/60
[2019-02-15 04:00] VITALS: BP 101/52
[2019-02-15 06:09] LABS: HEMATOCRIT 36.5 % (36.0-48.0); HEMOGLOBIN 12.3 g/dL (12.0-16.0); MEAN CORPUSCULAR HEMOGLOBIN 28.5 pg (28.0-32.0); MEAN CORPUSCULAR VOLUME 84.6 fL (81.0-99.0); PLATELET 182 x1000/uL (130-400); RED BLOOD CELL COUNT 4.32 mill/uL (4.2-5.4); RED CELL DISTRIBUTION WIDTH 16.3 % (11.6-14.6)
[2019-02-15 06:32] LABS: CHLORIDE 102 mEq/L (98-107)
[2019-02-15] MEDS: DOCUSATE SODIUM SUGAR FREE 100MG/10ML UDC PO SCH (09:16)
[2019-02-15 09:48] VITALS: BP 130/73
[2019-02-15] MEDS ORDERED: FLUCONAZOLE 150MG TABLET PO NR (13:00)
== END 2019-02-15 12:05 | disposition hospice, home (50) | DRG 180 ==
LOC: ER 18:39 → 5EST 23:09 → EDBEDREQTM 23:29 → EDBEDREQ 23:29 → ENRESERV 02-13 07:34 → CANRESERV 02-13 07:34 → EDBEDREQSVC 02-13 08:26 → ENRESERV 02-14 08:16
PROVIDERS: ADMIT Internal Medicine; ATTEND Internal Medicine
DX: C34.90 Malignant neoplasm of unspecified part of unspecified bronchus or lung (principal); G93.41 Metabolic encephalopathy; E87.6 Hypokalemia; G89.29 Other chronic pain; J44.9 Chronic obstructive pulmonary disease, unspecified; R06.03 Acute respiratory distress; D64.9 Anemia, unspecified; D72.819 Decreased white blood cell count, unspecified; K21.9 Gastro-esophageal reflux disease without esophagitis; G90.8 Other disorders of autonomic nervous system; E11.9 Type 2 diabetes mellitus without complications; I10 Essential (primary) hypertension; K59.00 Constipation, unspecified; Z51.5 Encounter for palliative care; Z79.891 Long term (current) use of opiate analgesic; Z87.891 Personal history of nicotine dependence; Z93.0 Tracheostomy status; Z79.4 Long term (current) use of insulin; Z79.899 Other long term (current) drug therapy; Z85.850 Personal history of malignant neoplasm of thyroid
CPT/HCPCS: 36415; 71045; 74018; 80048; 81003; 83605; 83880; 84145; 84484; 85027; 93005; 93880; 93970; 96361; 96374; 97161; 99284; 99285; J1170; J2270; J7030; J7620

== ENCOUNTER 2019-03-08 20:16 | Inpatient (IN) | payer MEDICARE, MEDICAID ==
[~2019-03-08] VITALS: Ht 167.6 cm; Wt 74.4 kg
[2019-03-08 22:04] LABS: CLARITY URINE CLEAR (CLEAR); COLOR URINE YELLOW (YELLOW); KETONES URINE TRACE (NEGATIVE); LEUKOCYTE ESTERASE URINE NEGATIVE (NEGATIVE); NITRITE URINE NEGATIVE (NEGATIVE); OCCULT BLOOD URINE NEGATIVE (NEGATIVE); PH URINE >=9.0 (4.5-8.0); PROTEIN URINE NEGATIVE (NEGATIVE); SPECIFIC GRAVITY URINE 1.018 (1.005-1.030)
[2019-03-08] MEDS ORDERED: ONDANSETRON HCL 4MG/2ML INJ IV ONE (23:45)
[2019-03-08] MEDS ORDERED: MORPHINE SULFATE 4 MG/ML CPJ (NOT FOR IM USE) IV ONE (23:45)
[2019-03-08 23:51] LABS: BASOPHILS % 0.8 % (0.0-2.0); EOSINOPHILS % 2.3 % (0.0-5.0); HEMOGLOBIN. 12.6 g/dL (12.0-16.0); LYMPHOCYTES % 32.5 % (20.0-50.0); MEAN CORPUSCULAR HEMOGLOBIN 28.7 pg (28.0-32.0); MEAN CORPUSCULAR VOLUME 84.3 fL (81.0-99.0); MONOCYTES % 8.1 % (2.0-8.0); NEUTROPHILS % 56.3 % (40.0-76.0); PLATELET 232 x1000/uL (130-400); RED BLOOD CELL COUNT 4.39 mill/uL (4.2-5.4)
[2019-03-08 23:57] LABS: CHLORIDE 107 mEq/L (98-107)
[2019-03-09] LABS: INR 1.1; PROTHROMBIN TIME 11.4 sec (9.6-11.0)
[2019-03-09] MEDS ORDERED: SODIUM CHLORIDE 0.9% 1,000 ML IV ONE (00:45)
[2019-03-09 03:00] VITALS: BP 132/58
[2019-03-09 04:00] VITALS: BP 132/58
[2019-03-09] MEDS ORDERED: ONDANSETRON HCL 4MG/2ML INJ IV PRN (04:00)
[2019-03-09] MEDS ORDERED: IPRATROPIUM/ALBUTEROL 0.5-3(2.5)MG/3ML NEB HHN PRN (04:00)
[2019-03-09] MEDS: DEXT 5%/0.45% NACL KCL 20MEQ/L 1,000 ML IV SCH ×2 (05:52→15:16)
[2019-03-09] MEDS: HYDROMORPHONE HCL/PF 2MG/ML CPJ IM PRN ×3 (05:53→14:18)
[2019-03-09 08:00] VITALS: BP 111/60
[2019-03-09] MEDS: PANTOPRAZOLE SODIUM 40 MG/VIAL IV SCH (08:52)
[2019-03-09] MEDS: ENOXAPARIN 40MG/0.4ML SYR SUBCUT SCH (08:52)
[2019-03-09 09:15] LABS: BASOPHILS % 0.7 % (0.0-2.0); EOSINOPHILS % 2.4 % (0.0-5.0); HEMATOCRIT. 35.6 % (36.0-48.0); LYMPHOCYTES % 39.3 % (20.0-50.0); MEAN CORPUSCULAR HEMOGLOBIN 28.4 pg (28.0-32.0); MEAN CORPUSCULAR VOLUME 84.1 fL (81.0-99.0); MONOCYTES % 8.8 % (2.0-8.0); NEUTROPHILS % 48.8 % (40.0-76.0); PLATELET 229 x1000/uL (130-400); RED BLOOD CELL COUNT 4.23 mill/uL (4.2-5.4); RED CELL DISTRIBUTION WIDTH 16.6 % (11.6-14.6)
[2019-03-09 09:20] LABS: CHLORIDE 106 mEq/L (98-107)
[2019-03-09 12:00] VITALS: BP 134/71
[2019-03-09] MEDS: BISACODYL 10MG SUPP PR SCH ×3 (12:00→18:00)
[2019-03-09] MEDS: LACTULOSE 20G/30ML UDC PO SCH ×3 (12:57→23:37)
[2019-03-09] MEDS: HYDROMORPHONE HCL/PF 2MG/ML CPJ IV PRN ×2 (18:26→23:38)
[2019-03-09 20:00] VITALS: BP 117/54
[2019-03-09] MEDS ORDERED: BISACODYL 10MG SUPP PR SCH (20:00)
[2019-03-09] MEDS ORDERED: MAGNESIUM CITRATE 300ML SOLUTION PO NR (20:00)
[2019-03-10] VITALS: BP 123/70
[2019-03-10] MEDS: DEXT 5%/0.45% NACL KCL 20MEQ/L 1,000 ML IV SCH ×3 (02:53→22:18)
[2019-03-10 04:00] VITALS: BP 113/74
[2019-03-10] MEDS: HYDROMORPHONE HCL/PF 2MG/ML CPJ IV PRN ×5 (04:11→22:20)
[2019-03-10] MEDS: LACTULOSE 20G/30ML UDC PO SCH (06:02)
[2019-03-10 08:00] VITALS: BP 132/65
[2019-03-10] MEDS: BISACODYL 10MG SUPP PR SCH (09:00)
[2019-03-10] MEDS: PANTOPRAZOLE SODIUM 40 MG/VIAL IV SCH (09:11)
[2019-03-10] MEDS: ENOXAPARIN 40MG/0.4ML SYR SUBCUT SCH (09:12)
[2019-03-10 12:00] VITALS: BP 132/66
[2019-03-10] MEDS ORDERED: LACT10SO MT (14:24)
[2019-03-10 20:00] VITALS: BP 126/72
[2019-03-11] VITALS: BP 118/68
[2019-03-11] MEDS: HYDROMORPHONE HCL/PF 2MG/ML CPJ IV PRN ×3 (02:29→11:04)
[2019-03-11] MEDS: DEXT 5%/0.45% NACL KCL 20MEQ/L 1,000 ML IV SCH ×2 (02:33→08:40)
[2019-03-11 04:00] VITALS: BP 129/75
[2019-03-11] MEDS ORDERED: METOCLOPRAMIDE HCL 10MG/2ML VIAL IV PRN (06:00)
[2019-03-11 08:00] VITALS: BP 129/80
[2019-03-11] MEDS: PANTOPRAZOLE SODIUM 40 MG/VIAL IV SCH (08:37)
[2019-03-11] MEDS: ENOXAPARIN 40MG/0.4ML SYR SUBCUT SCH (08:39)
[2019-03-11] MEDS: BISACODYL 10MG SUPP PR SCH (09:00)
[2019-03-11 12:00] VITALS: BP 130/76
[2019-03-11 12:12] VITALS: BP 129/80
== END 2019-03-11 14:45 | disposition hospice, home (50) | DRG 389 ==
LOC: ER 20:16 → 6EST 03-09 00:38 → ENRESERV 03-09 01:56
PROVIDERS: ADMIT Internal Medicine; ATTEND Internal Medicine
DX: K56.7 Ileus, unspecified (principal); C79.51 Secondary malignant neoplasm of bone; F11.20 Opioid dependence, uncomplicated; K56.41 Fecal impaction; K56.609 Unspecified intestinal obstruction, unspecified as to partial versus complete obstruction; D72.819 Decreased white blood cell count, unspecified; C73 Malignant neoplasm of thyroid gland; E11.9 Type 2 diabetes mellitus without complications; K21.9 Gastro-esophageal reflux disease without esophagitis; E87.6 Hypokalemia; E88.09 Other disorders of plasma-protein metabolism, not elsewhere classified; D64.9 Anemia, unspecified; I10 Essential (primary) hypertension; Z93.0 Tracheostomy status; Z85.118 Personal history of other malignant neoplasm of bronchus and lung; Z87.19 Personal history of other diseases of the digestive system; Z87.891 Personal history of nicotine dependence; Z59.0 Homelessness; Z87.440 Personal history of urinary (tract) infections; Z79.899 Other long term (current) drug therapy
CPT/HCPCS: 36415; 74018; 74176; 80048; 80053; 81003; 85025; 94640; 96372; 96375; 99285; C1893; C9113; J1170; J1650; J2270; J2405; J2765

== ENCOUNTER 2019-03-11 16:33 | Inpatient (IN) | payer MEDICARE, MEDICAID ==
[~2019-03-11] VITALS: Ht 165.1 cm; Wt 78.9 kg
[~2019-03-11 16:33] MED LIST changes: -ALBU2.5V13 NEB; -CEPH-569 MT; -DOCU-138 MT; -FAMO-135 PO; -FURO-152 MT; -HYDR-3280 MT; -INSULIN; -IPRA3AMP9 NEB; +LACT10SO MT; -MORP10DI10 PO; -MORP30TA54 PO; -ONDA4TAB5 MT; -SENN-170 PO; -TEMA15CA PO
[2019-03-11] MEDS ORDERED: SODIUM CHLORIDE 0.9% 1,000 ML IV ONE ×2 (17:35→20:00)
[2019-03-11] MEDS ORDERED: MORPHINE SULFATE 4 MG/ML CPJ (NOT FOR IM USE) IV ONE (17:45)
[2019-03-11] MEDS ORDERED: ONDANSETRON HCL 4MG/2ML INJ IV ONE ×2 (17:45→20:30)
[2019-03-11 18:27] LABS: BASOPHILS % 0.4 % (0.0-2.0); HEMATOCRIT. 41.8 % (36.0-48.0); LYMPHOCYTES % 7.4 % (20.0-50.0); MEAN CORPUSCULAR HEMOGLOBIN 28.4 pg (28.0-32.0); MEAN CORPUSCULAR VOLUME 84.7 fL (81.0-99.0); MEAN PLATELET VOLUME 7.4 fl (7.4-10.4); MONOCYTES % 4.2 % (2.0-8.0); PLATELET 255 x1000/uL (130-400); RED BLOOD CELL COUNT 4.94 mill/uL (4.2-5.4); RED CELL DISTRIBUTION WIDTH 16.6 % (11.6-14.6)
[2019-03-11 18:34] LABS: CHLORIDE 103 mEq/L (98-107)
[2019-03-11 19:14] LABS: CLARITY URINE TURBID (CLEAR); COLOR URINE DARK YELLOW (YELLOW); KETONES URINE TRACE (NEGATIVE); LEUKOCYTE ESTERASE URINE 3+ (NEGATIVE); NITRITE URINE POSITIVE (NEGATIVE); OCCULT BLOOD URINE 2+ (NEGATIVE); PH URINE 7.5 (4.5-8.0); PROTEIN URINE 1+ (NEGATIVE); SPECIFIC GRAVITY URINE 1.015 (1.005-1.030)
[2019-03-11] MEDS ORDERED: IOHEXOL-300 100 ML BOTTLE ONE (19:53)
[2019-03-11] MEDS ORDERED: CEFTRIAXONE 2 G PREMIX 50 ML IV ONE (20:00)
[2019-03-11] MEDS ORDERED: KETOROLAC 15MG/ML VIAL IV ONE (20:30)
[2019-03-12] MEDS: MORPHINE SULFATE 4 MG/ML CPJ (NOT FOR IM USE) IV PRN ×2 (05:20→09:08)
[2019-03-12] MEDS: ONDANSETRON HCL 4MG/2ML INJ IV PRN ×2 (05:21→09:08)
[2019-03-12 10:40] VITALS: BP 130/71
[2019-03-12] MEDS ORDERED: HYDROMORPHONE HCL/PF 2MG/ML CPJ IV PRN (10:45)
[2019-03-12] MEDS ORDERED: ONDANSETRON HCL 4MG/2ML INJ IV PRN (10:45)
[2019-03-12 12:00] VITALS: BP 130/71
[2019-03-12] MEDS: DEXT 5%/0.45% NACL 1000ML 1,000 ML IV SCH (12:52)
[2019-03-12] MEDS: FAMOTIDINE 20MG/2ML VIAL IV SCH (12:52)
[2019-03-12] MEDS ORDERED: ONDANSETRON HCL 4MG/2ML INJ IV NR (13:00)
[2019-03-12] MEDS ORDERED: BISACODYL 10MG SUPP PR PRN (13:00)
[2019-03-12] MEDS: LACTULOSE 20G/30ML UDC PO SCH ×3 (13:16→21:08)
[2019-03-12] MEDS: IPRATROPIUM/ALBUTEROL 0.5-3(2.5)MG/3ML NEB HHN SCH ×2 (14:10→20:00)
[2019-03-12] MEDS ORDERED: ACETAMINOPHEN 325MG TABLET PO PRN (14:15)
[2019-03-12] MEDS ORDERED: ACETAMINOPHEN 650MG SUPP PR PRN (14:15)
[2019-03-12] MEDS ORDERED: CLONIDINE 0.1MG TABLET PO PRN (14:15)
[2019-03-12] MEDS ORDERED: DEXTROSE 50% WATER 50ML SYRINGE IV PRN (14:30)
[2019-03-12 16:00] VITALS: BP 121/55
[2019-03-12] MEDS: HYDROMORPHONE HCL/PF 2MG/ML CPJ IV PRN ×2 (17:10→22:46)
[2019-03-12] MEDS: DOCUSATE SODIUM 100MG CAPSULE PO SCH (17:14)
[2019-03-12] MEDS: BLOOD SUGAR DIAGNOSTIC STRIP TEST SCH ×2 (17:15→21:00)
[2019-03-12] MEDS: INSULIN LISPRO 100 UNITS/ML SUBCUT SCH ×2 (17:15→21:00)
[2019-03-12 19:53] LABS: HEMOGLOBIN 12.2 g/dL (12.0-16.0); MEAN CORPUSCULAR HEMOGLOBIN 28.6 pg (28.0-32.0); MEAN CORPUSCULAR VOLUME 84.4 fL (81.0-99.0); PLATELET 229 x1000/uL (130-400); RED BLOOD CELL COUNT 4.26 mill/uL (4.2-5.4); RED CELL DISTRIBUTION WIDTH 16.6 % (11.6-14.6)
[2019-03-12 20:00] VITALS: BP 109/56
[2019-03-12 20:07] LABS: CHLORIDE 107 mEq/L (98-107)
[2019-03-12] MEDS ORDERED: CEFTRIAXONE 1 G PREMIX 50 ML IV SCH (21:00)
[2019-03-13] MEDS: IPRATROPIUM/ALBUTEROL 0.5-3(2.5)MG/3ML NEB HHN SCH ×4 (01:56→20:35)
[2019-03-13 04:00] VITALS: BP 123/68
[2019-03-13] MEDS: DEXT 5%/0.45% NACL 1000ML 1,000 ML IV SCH ×2 (04:28→21:52)
[2019-03-13] MEDS: HYDROMORPHONE HCL/PF 2MG/ML CPJ IV PRN ×4 (04:37→21:35)
[2019-03-13] MEDS: LACTULOSE 20G/30ML UDC PO SCH (06:00)
[2019-03-13 06:49] LABS: BASOPHILS % 0.4 % (0.0-2.0); EOSINOPHILS % 0.3 % (0.0-5.0); HEMATOCRIT. 35.7 % (36.0-48.0); LYMPHOCYTES % 18.8 % (20.0-50.0); MEAN CORPUSCULAR HEMOGLOBIN 28.5 pg (28.0-32.0); MEAN CORPUSCULAR VOLUME 85.1 fL (81.0-99.0); MEAN PLATELET VOLUME 7.5 fl (7.4-10.4); MONOCYTES % 10.5 % (2.0-8.0); PLATELET 227 x1000/uL (130-400); RED CELL DISTRIBUTION WIDTH 16.5 % (11.6-14.6)
[2019-03-13] MEDS: BLOOD SUGAR DIAGNOSTIC STRIP TEST SCH ×4 (06:50→21:00)
[2019-03-13 07:11] LABS: CHLORIDE 106 mEq/L (98-107)
[2019-03-13 08:00] VITALS: BP 115/66
[2019-03-13] MEDS: DOCUSATE SODIUM 100MG CAPSULE PO SCH (09:47)
[2019-03-13] MEDS: FAMOTIDINE 20MG/2ML VIAL IV SCH (09:47)
[2019-03-13] MEDS: INSULIN LISPRO 100 UNITS/ML SUBCUT SCH ×4 (09:57→21:00)
[2019-03-13 12:00] VITALS: BP 127/74
[2019-03-13] MEDS ORDERED: LACTULOSE 20G/30ML UDC PO PRN (12:30)
[2019-03-13 16:00] VITALS: BP 126/64
[2019-03-13] MEDS ORDERED: LEVOFLOXACIN 500MG TABLET PO SCH (17:00)
[2019-03-13 20:00] VITALS: BP 126/56
[2019-03-13] MEDS: LEVOFLOXACIN 500MG TABLET PO SCH (21:36)
[2019-03-14] VITALS: BP 115/43
[2019-03-14] MEDS: IPRATROPIUM/ALBUTEROL 0.5-3(2.5)MG/3ML NEB HHN SCH ×4 (01:50→21:32)
[2019-03-14] MEDS: HYDROMORPHONE HCL/PF 2MG/ML CPJ IV PRN ×4 (03:11→20:11)
[2019-03-14 04:00] VITALS: BP 118/45
[2019-03-14] MEDS: BLOOD SUGAR DIAGNOSTIC STRIP TEST SCH ×4 (06:13→20:21)
[2019-03-14] MEDS: INSULIN LISPRO 100 UNITS/ML SUBCUT SCH ×4 (06:14→20:22)
[2019-03-14 07:02] LABS: BASOPHILS % 0.3 % (0.0-2.0); EOSINOPHILS % 0.6 % (0.0-5.0); HEMATOCRIT. 34.9 % (36.0-48.0); HEMOGLOBIN. 11.9 g/dL (12.0-16.0); LYMPHOCYTES % 26.9 % (20.0-50.0); MEAN CORPUSCULAR HEMOGLOBIN 28.7 pg (28.0-32.0); MEAN CORPUSCULAR VOLUME 84.3 fL (81.0-99.0); MEAN PLATELET VOLUME 7.4 fl (7.4-10.4); NEUTROPHILS % 61.2 % (40.0-76.0); PLATELET 226 x1000/uL (130-400); RED BLOOD CELL COUNT 4.14 mill/uL (4.2-5.4); RED CELL DISTRIBUTION WIDTH 16.2 % (11.6-14.6)
[2019-03-14 07:22] LABS: CHLORIDE 105 mEq/L (98-107)
[2019-03-14 08:00] VITALS: BP 122/70
[2019-03-14] MEDS: DOCUSATE SODIUM 100MG CAPSULE PO SCH ×2 (08:35→16:35)
[2019-03-14] MEDS: FAMOTIDINE 20MG/2ML VIAL IV SCH (08:35)
[2019-03-14 12:00] VITALS: BP 126/69
[2019-03-14] MEDS: DEXT 5%/0.45% NACL 1000ML 1,000 ML IV SCH (12:45)
[2019-03-14 16:00] VITALS: BP 123/54
[2019-03-14] MEDS: LEVOFLOXACIN 500MG TABLET PO SCH (16:35)
[2019-03-14 20:00] VITALS: BP 129/62
[2019-03-15] VITALS: BP 124/58
[2019-03-15] MEDS: HYDROMORPHONE HCL/PF 2MG/ML CPJ IV PRN ×4 (02:13→20:26)
[2019-03-15 04:00] VITALS: BP 121/67
[2019-03-15] MEDS: BLOOD SUGAR DIAGNOSTIC STRIP TEST SCH ×4 (06:26→21:39)
[2019-03-15] MEDS: IPRATROPIUM/ALBUTEROL 0.5-3(2.5)MG/3ML NEB HHN SCH ×3 (07:35→14:15)
[2019-03-15] MEDS: INSULIN LISPRO 100 UNITS/ML SUBCUT SCH ×4 (07:50→21:00)
[2019-03-15] MEDS: FAMOTIDINE 20MG/2ML VIAL IV SCH (08:22)
[2019-03-15] MEDS: DOCUSATE SODIUM 100MG CAPSULE PO SCH ×2 (08:22→17:05)
[2019-03-15 11:58] LABS: BASOPHILS % 0.5 % (0.0-2.0); EOSINOPHILS % 0.7 % (0.0-5.0); HEMATOCRIT. 38.9 % (36.0-48.0); HEMOGLOBIN. 13.4 g/dL (12.0-16.0); LYMPHOCYTES % 34.3 % (20.0-50.0); MEAN CORPUSCULAR HEMOGLOBIN 29.1 pg (28.0-32.0); MEAN CORPUSCULAR VOLUME 84.2 fL (81.0-99.0); MEAN PLATELET VOLUME 7.4 fl (7.4-10.4); MONOCYTES % 11.3 % (2.0-8.0); NEUTROPHILS % 53.2 % (40.0-76.0); PLATELET 243 x1000/uL (130-400); RED BLOOD CELL COUNT 4.62 mill/uL (4.2-5.4); RED CELL DISTRIBUTION WIDTH 15.9 % (11.6-14.6)
[2019-03-15 12:06] LABS: CHLORIDE 104 mEq/L (98-107)
[2019-03-15] MEDS: LEVOFLOXACIN 500MG TABLET PO SCH (17:05)
[2019-03-15] MEDS ORDERED: HYDROCODONE/ACETAMINOPHEN 5/325MG TABLET PO PRN (19:15)
[2019-03-15 20:00] VITALS: BP 132/59
[2019-03-16] VITALS: BP 140/77
[2019-03-16] MEDS: HYDROMORPHONE HCL/PF 2MG/ML CPJ IV PRN ×3 (02:27→14:34)
[2019-03-16 04:00] VITALS: BP 116/62
[2019-03-16] MEDS: BLOOD SUGAR DIAGNOSTIC STRIP TEST SCH ×2 (07:20→12:20)
[2019-03-16] MEDS: INSULIN LISPRO 100 UNITS/ML SUBCUT SCH ×2 (07:50→12:50)
[2019-03-16 08:00] VITALS: BP 114/63
[2019-03-16] MEDS: DOCUSATE SODIUM 100MG CAPSULE PO SCH (08:34)
[2019-03-16] MEDS: FAMOTIDINE 20MG/2ML VIAL IV SCH (08:34)
[2019-03-16 12:00] VITALS: BP 102/60
[2019-03-16 14:48] VITALS: BP 108/52
== END 2019-03-16 16:00 | disposition hospice, home (50) | DRG 388 ==
LOC: ER 16:33 → EDBEDREQTM 21:55 → EDBEDREQSVC 21:55 → EDBEDREQ 21:55 → 6EST 22:03 → EDBEDREQ 22:06 → EDBEDREQTM 22:06 → EDBEDREQSVC 03-12 08:28 → CANRESERV 03-12 08:53 → ENRESERV 03-12 08:53 → EDBEDREQSVC 03-12 10:02 → ENRESERV 03-12 10:04 → 6EST 03-12 11:02
PROVIDERS: ADMIT Internal Medicine; ATTEND Internal Medicine
DX: K56.7 Ileus, unspecified (principal); J96.91 Respiratory failure, unspecified with hypoxia; N39.0 Urinary tract infection, site not specified; F11.20 Opioid dependence, uncomplicated; C79.51 Secondary malignant neoplasm of bone; C79.89 Secondary malignant neoplasm of other specified sites; K59.09 Other constipation; E86.0 Dehydration; B96.20 Unspecified Escherichia coli [E. coli] as the cause of diseases classified elsewhere; E11.9 Type 2 diabetes mellitus without complications; F41.9 Anxiety disorder, unspecified; G89.29 Other chronic pain; I10 Essential (primary) hypertension; Z85.118 Personal history of other malignant neoplasm of bronchus and lung; Z93.0 Tracheostomy status
CPT/HCPCS: 36415; 71045; 74018; 74176; 74177; 80048; 80053; 81003; 82962; 83880; 84484; 85025; 85027; 87077; 87186; 87804; 93005; 94640; 96372; 96375; 97162; 99285; C1893; C9113; J0696; J1170; J1650; J1815; J1885; J2270; J2405; J2765; J3490; J7030; Q9967